=== PATIENT | male | born 1960 | race Caucasian/White ===

== ENCOUNTER 2017-07-03 15:34 | Emergency (ER) | payer OTHER ==
[~2017-07-03] VITALS: Ht 167.6 cm; Wt 92.8 kg
[~2017-07-03 15:34] MED LIST: IBUP800T23 PO; ROBA750T3 PO; TRAM50 PO
[2017-07-03 15:48] VITALS: BP 167/82; PULSE 73; RESP 16; TEMP 97.9; O2SAT 98
[2017-07-03] MEDS ORDERED: NAPR500T PO (15:55)
[2017-07-03] MEDS ORDERED: CYCL1TAB29 PO (15:55)
[2017-07-03] MEDS ORDERED: ORPHENADRINE INJ 60 MG/2 ML AMP IM ONE (16:30)
[2017-07-03] MEDS ORDERED: KETOROLAC TROMETHAMINE 60 MG/2 ML (IM) VIAL IM ONE (16:30)
--- NOTE | 2017-07-03 16:44 | PD ---
HPI Chief Complaint: Back/ Neck Pain or Injury Time Seen by Provider: 15:53 Travel History International Travel<30 days: No Contact w/Intl Traveler<30days: No Traveled to known affect area: No History of Present Illness HPI 57-year-old white male here for evaluation of acute exacerbation of low back pain with radiation to his left leg for one week. He states that he went to a [facility] care for the pain and they gave him a shot of steroids and muscle relaxer and did not relieve his pain. He is concerned that there is something more serious going on. He states that the pain is severe, constant in his lower back with radiating pain to his buttocks and anterior thigh. Says this started 6 months ago, went to [facility], had xrays of his lower back and was diagnosed with possible disc herniation. He denies a history of falls, weakness , trauma, illicit drug use, fever, chills, chest pain, shortness of breath, abdominal pain, loss of bowel or bladder function, or personal history of cancer. Denies any chronic medical issues or medication use. He works in maintenance and installation. [employer] Past Medical History Musculoskeletal: Yes (DISK PROBLEMS.) Social History Alcohol Use: No Tobacco Use: No Substance Use: No Allergies-Medications (Allergen,Severity, Reaction): Coded Allergies: No Known Allergies (Verified , 07/03/17) Reported Meds & Prescriptions Reported Meds & Active Scripts Active Ibuprofen 600 Mg Tab 600 Mg PO Q8HR PRN 7 Days Reported Naproxen 500 Mg Tab 500 Mg PO BID Flexeril (Cyclobenzaprine HCl) 10 Mg Tab 10 Mg PO TID Review of Systems Except as stated in HPI: all other systems reviewed are Neg Physical Exam Narrative GENERAL: Well-developed well-nourished pleasant SKIN: Focused skin assessment warm/dry. HEAD: Atraumatic. Normocephalic. NECK: Trachea midline. No JVD. No midline cervical tenderness CARDIOVASCULAR: Regular rate and rhythm. No murmur appreciated. RESPIRATORY: No accessory muscle use. Clear to auscultation. Breath sounds equal bilaterally. GASTROINTESTINAL: Abdomen soft, non-tender, nondistended. No pulsating mass. MUSCULOSKELETAL: No obvious deformities. No clubbing. No cyanosis. No edema. BACK: No CVA tenderness. No rash. Some point tenderness on palpation of the spine in Lumbar distribution, extending out to SI joints. NEUROLOGICAL: Awake and alert. No obvious cranial nerve deficits. Motor grossly within normal limits. Normal speech. Grade 5/5 strength in right lower extremity and 4/5 in left, however pt admits he is reluctant to move that leg. DTRs intact. sensory intact. PSYCHIATRIC: Appropriate mood and affect; insight and judgment normal. Data Data Last Documented VS Vital Signs Date Time Temp Pulse Resp B/P (MAP) Pulse Ox O2 Delivery O2 Flow Rate FiO2 07/03/17 15:48 97.9 73 16 167/82 (110) 98 Orders Orders Ketorolac Inj (Toradol Inj) (07/03/17 16:30) Orphenadrine Inj (Norflex Inj) (07/03/17 16:30) MDM Medical Decision Making Medical Screen Exam Complete: Yes Emergency Medical Condition: Yes Differential Diagnosis left sided sciatica versus lumbago versus muscle strain Narrative Course 57-year-old white male here for evaluation of acute exacerbation of low back pain with radiation to his left leg for one week. He states that [facility] and they gave him a shot of steroids and muscle relaxer and did not relieve his pain. He is concerned that there is something more serious going on. He states that the pain is severe, constant in his lower back with radiating pain to his buttocks and anterior thigh. Says this started 6 months ago, went to [facility], had xrays of his lower back and was diagnosed with possible disc herniation. He denies a history of falls, weakness , trauma, illicit drug use, fever, chills, chest pain, shortness of breath, abdominal pain, loss of bowel or bladder function, or personal history of cancer. Denies any chronic medical issues or medication use. He works in maintenance and installation. Toradol and Norflex was given to help relieve some of his pain. [facility] was consulted and did not show chronic pain medication fills in the state [facility]. Physical exam was consistent with Sciatica. Advised to use extreme caution with medications given today. Diagnosis Primary Impression: Sciatica of left side Additional Instructions: Perform light stretches of the lower back and alternate heat and ice packs. If you develop increased pain, weakness, fever, chills, or bowel or bladder issues, return to the ED for further treatment and evaluation. Follow up with your primary care physician in 2-3 days. Scripts Tramadol (Tramadol) 50 Mg Tab 50 MG PO Q8H Y for PAIN for 3 Days, #9 TAB 0 Refills Prov: Trent Walker MD 07/03/17 Ibuprofen (Ibuprofen) 600 Mg Tab 600 MG PO Q8HR Y for PAIN for 7 Days, TAB 0 Refills Prov: Nely Oneal 07/03/17 Nely Oneal Jul 03, 2017 16:44
[2017-07-03] MEDS ORDERED: IBUP-232 PO (17:11)
[2017-07-03] MEDS ORDERED: TRAM50TA PO (17:12)
== END 2017-07-03 17:30 | disposition home or self-care (01) ==
LOC: PHEFT 15:34
DX: M54.42 Lumbago with sciatica, left side (principal)
CPT/HCPCS: 96372; 99284; J1885; J2360